=== PATIENT | female | born 1945 | race Caucasian/White ===

== ENCOUNTER 2020-12-04 14:40 | Outpatient (CLI) | payer MEDICARE, OTHER, SELFPAY ==
--- NOTE | 2020-12-04 14:53 | XR_ITS ---
WS: [id number] Bone mineral density performed on a [employer] IDXA, 12/04/2020 Clinical data: POST MENOPAUSAL Comparison study: DEXA scan, 12/01/2017. Findings: The first 4 lumbar vertebral bodies demonstrated the bone mineral density of 1.176 g/cm2 for a young adult T score of 0.0. Measurement of the left hip reveals a bone mineral density of 0.741 g/cm2 with a young adult T score of -2.1. Measurement of the right hip reveals the bone mineral density of 0.772 g/cm2 for young adult T score of -1.9. XR/XR DEXA axial skeleton* [id number] Impression: 1. The bone mineral density of the lumbar spine is normal and has improved comp ared to the prior study. 2. The bone mineral density left hip shows osteopenia and has decreased compare d to the prior study. 3. The bone mineral density of the right hip shows osteopenia and has diminishe d compared to the prior study.
== END 2020-12-04 14:41 | disposition home or self-care (01) ==
PROVIDERS: PCP Internal Medicine; Visit Provider Internal Medicine
DX: Z78.0 Asymptomatic menopausal state (principal); M85.88 Other specified disorders of bone density and structure, other site
CPT/HCPCS: 77080

== ENCOUNTER 2021-12-24 10:45 | Emergency (ER) | payer MEDICARE, OTHER, SELFPAY ==
[2021-12-24 10:57] VITALS: BP 158/90; PULSE 75; RESP 16; TEMP 36.8; O2SAT 97; BMI 29.0
--- NOTE | 2021-12-24 12:01 | ECG_ITS ---
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 Measurements Intervals [place] Rate: 72 P: 75 NC: 160 QRS: -24 QRSD: 129 T: 81 QT: 435 QTc: 478 Interpretive Statements SINUS RHYTHM WITH SINUS ARRHYTHMIA LEFT BUNDLE BRANCH BLOCK [120+ ms QRS DURATION, 80+ ms Q/S IN V1/V2, 85+ ms R IN I/aVL/V5/V6] No previous ECG available for comparison Electronically Signed On 12-24-2021 22:03:46 CDT by Elda Herrera M.D. [id number]
--- NOTE | 2021-12-24 12:01 | XR_ITS ---
WS: [id number] Exam: XR chest 1V portable [id number] Date/Time of Exam: 12/24/2021 12:03 PM Reason For Exam: dyspnea Comparison 07/06/2011. The lungs are clear and fully expanded. Normal cardiomediastinal silhouette. Atherosclerotic plaquing of the thoracic aorta. Mild bilateral apical pleural thickening. XR/XR chest 1V portable [id number] IMPRESSION: 1. No acute cardiopulmonary finding. No change.
--- NOTE | 2021-12-24 12:12 | ED_ITS ---
HPI - General Adult General: Chief complaint: Shortness of Breath/Dyspnea Stated complaint: SOB Time Seen by Provider: 12/24/21 12:01 History of Present Illness: Patient is a 76-year-old female with a history of macular degeneration, diabetes presenting to the emergency room for evaluation of generalized weakness, malaise, decreased p.o. intake cough and shortness of breath x1 week. Patient says that symptoms all started about a week ago and has been persistent. Patient denies any sick contact. Patient reports nausea without vomiting or diarrhea. Patient denies any generalized muscle ache or body weakness. Patient denies any chest pain, palpitation, abdominal complaints or complaints this time. No focal neurological complaints. Onset: 1 week ago Duration:1 week Location:home Severity:moderate Associated symptoms: Reports dyspnea, malaise and nausea; Deny chest pain, rash, palpitations or vomiting Review of Systems Const: Reports: fatigue and malaise; Denies: fever(s), chills or body aches Eyes: Denies: change in vision ENMT: Denies: mouth pain Card: Denies: chest pain or palpitations Resp: Reports: dyspnea and non-productive cough GI: Reports: nausea and other (+decreased po intake); Denies: abdominal pain, vomiting or diarrhea : Denies: dysuria Musc: Denies: extremity pain Skin/Breast: Denies: rash or new lesions Neuro: Denies: weakness in extremities Psych: Reports: other (Normal mood) Igor/Lymph: Denies: easy bruising PFSH ED PFSH: Medical History Hyperlipidemia Hypertension Surgical History History of bunionectomy of left great toe History of bunionectomy of right great toe History of hysterectomy History of tonsillectomy Family History Mother Cancer Father Cancer Brother Cancer Diabetes Denies family history of CAD (coronary artery disease) Clotting disorder Dementia Hyperlipidemia Psychiatric illness Chronic kidney disease (CKD) Suicide Anesthesia complication Bleeding disorder Family history of premature coronary artery disease Lung disease Hypertension Stroke Social History Smoking and tobacco status: never smoked Quit status (tobacco): has quit using tobacco Second hand smoke exposure: No Smoking risk assessment/counseling performed?: Yes Alcohol intake: never Desire information about alcohol rehabilitation?: No Counseling given: No Desire information about substance/drug rehabilitation?: No Counseling given: No Adopted: No Caregiver/support person: No Lives independently: Yes Marital status: Physical Exam Const: COMMON NORMALS: alert HENMT: COMMON NORMALS: atraumatic HEAD & SCALP: atraumatic MOUTH: moist mucous membranes not abnormal Eye: COMMON NORMALS: EOMs intact bilaterally and conjunctivae normal CON JUNCTIVA: Yes conjunctivae normal Neck/C-Spine: COMMON NORMALS: full ROM and supple Resp: COMMON NORMALS: normal respiratory effort and clear to auscultation bilaterally AUSCULTATION: clear to auscultation bilaterally OTHER: No coarse breath sounds or wheezing Cardio: COMMON NORMALS: regular rate RATE: regular rate GI: COMMON NORMALS: Soft to palpation and non-tender PALPATION: Yes Soft to palpation OTHER: No focal TTP. NO guarding rebound, guarding, rigidity. No CVA tenderness to percussion. Neg Beckford/Neg McBurney's point tenderness, no suprabupic tenderness to palpation. Extremity: COMMON NORMALS: full ROM Neuro: SENSORIUM/ORIENTATION: Yes alert MOTOR EXAM: No Abnormal motor strength present and Other motor observations present (no focal motor deficits) Psych: COMMON NORMALS: speech normal SPEECH: Yes normal speech MOOD & AFFECT: Yes euthymic mood Course Vital Signs: Vital signs: Vital Signs Temperature 98.2 F 12/24/21 10:57 Pulse Rate 85 12/24/21 15:29 Respiratory Rate 20 H 12/24/21 15:29 Blood Pressure 152/79 12/24/21 15:29 Pulse Oximetry 95 12/24/21 15:29 [facility] - General Adult Medical Decision Making 76-year-old who presented to the emergency with shortness of breath cough and generalized weakness x1 week. COVID flu negative. White count 7.6. X-ray chest negative for pneumonia. Patient continues to be hemodynamically stable, with normal O2 sats. Patient is noted have sodium 125 and potassium 3.3. Patient instructed to replete both. Troponin x2 with delta less than 5. EKG is nonischemic. Swabs negative for covid and influenza. In the setting of cough, likely viral. EKG showing LBBB at heart rate of 72. Left axis. No sgarbossa criteria for STEMI. DE and QT intervals wnl. Disposition: Discharge. Patient counseled regarding diagnostic impression, treatment plan. Patient given ED strict return precautions to return for continuation, worsening, or development of new symptoms. Instructed to f/u w/ PCP regarding symptoms today. Patient verbalized understanding. Lab Data : 12/24/21 12:18 12/24/21 12:18 Radiology Impressions Chest X-Ray 12/24/21 12:01 IMPRESSION: 1. No acute cardiopulmonary finding. No change. Laboratory Results WBC 7.6 10^3/uL (4.0-10.0) 12/24/21 12:18 RBC 4.69 10^6/uL (4.1-5.3) 12/24/21 12:18 Hgb 14.3 g/dL (11.5-15.3) 12/24/21 12:18 Hct 41.1 % (37.0-47.0) 12/24/21 12:18 MCV 87.6 fl (81-99) 12/24/21 12:18 MCH 30.5 pg (28.0-34.0) 12/24/21 12:18 MCHC 34.8 g/dL (30.0-36.0) 12/24/21 12:18 RDW 12.8 % (12.1-15.1) 12/24/21 12:18 Plt Count 230 10^3/cmm (130-400) 12/24/21 12:18 MPV 9.3 fL (7.4-10.4) 12/24/21 12:18 Neut % (Auto) 85.7 % 12/24/21 12:18 Lymph % (Auto) 7.1 % 12/24/21 12:18 [place] % (Auto) 6.6 % 12/24/21 12:18 Eos % (Auto) 0.0 % 12/24/21 12:18 Baso % (Auto) 0.3 % 12/24/21 12:18 Neut # (Auto) 6.48 10^3/uL (1.8-7.7) 12/24/21 12:18 Lymph # (Auto) 0.5 10^3/uL (0.8-4.8) L 12/24/21 12:18 [place] # (Auto) 0.5 10^3/uL (0.2-0.9) 12/24/21 12:18 Eos # (Auto) 0.0 10^3/uL (0.0-0.8) 12/24/21 12:18 Baso # (Auto) 0.0 10^3/uL (0.0-0.1) 12/24/21 12:18 Nucleated RBC % (auto) 0 % 12/24/21 12:18 Nucleated RBCs # 0.0 /100WBC 12/24/21 12:18 Sodium 125 mmol/L (136-145) L 12/24/21 12:18 Potassium 3.3 mmol/L (3.5-5.1) L 12/24/21 12:18 Chloride 84 mmol/L (98-107) L 12/24/21 12:18 Carbon Dioxide 29 mmol/L (22-29) 12/24/21 12:18 Anion Gap 15.3 (5-19) 12/24/21 12:18 BUN 14 mg/dL (8-23) 12/24/21 12:18 Creatinine 0.7 mg/dL (0.5-0.9) 12/24/21 12:18 GFR Calculation Not Reportable 12/24/21 12:18 Glucose 267 mg/dL (65-115) H 12/24/21 12:18 Calculated Osmolality 270 mOsm/kg (285-295) L 12/24/21 12:18 Calcium 9.1 mg/dL (8.5-10.5) 12/24/21 12:18 Troponin T Baseline 11 ng/L (0-10) H 12/24/21 12:18 Troponin T 120 Minute 10.45 ng/L (0-10) H 12/24/21 14:34 Delta Troponin T -0.55 ABS# (0-10) L 12/24/21 14:34 NT-Pro-B Natriuret Pep 958 pg/mL (0-450) H 12/24/21 12:18 Nasal Influ A H1 2008 PCR Not detected (NOT DETECT) 12/24/21 12:20 Coronavirus 229E (PCR) Not detected (NOT DETECT) 12/24/21 12:20 Influenza A (H1) PCR Not detected (NOT DETECT) 12/24/21 12:20 Influenza A (H3) PCR Not detected (NOT DETECT) 12/24/21 12:20 Influenza Type A Ag Cancelled 12/24/21 12:20 Influenza Type A (PCR) Not detected (NOT DETECT) 12/24/21 12:20 Influenza Type B Ag Cancelled 12/24/21 12:20 Influenza Type B (PCR) Not detected (NOT DETECT) 12/24/21 12:20 Parainfluenza 1 (PCR) Not detected (NOT DETECT) 12/24/21 14:14 Parainfluenza 2 (PCR) Not detected (NOT DETECT) 12/24/21 14:14 Parainfluenza 3 (PCR) Detected (NOT DETECT) A 12/24/21 14:14 Parainfluenza 4 (PCR) Not detected (NOT DETECT) 12/24/21 14:14 SARS-CoV-2 (PCR) Not detected (NOT DETECT) 12/24/21 12:20 Discharge Plan Discharge Patient Disposition: Home Clinical Impression: Cough, Generalized weakness, Hypokalemia, Hyponatremia Condition: Stable Prescriptions: New acetaminophen 500 mg tablet 500 mg PO Q6H PRN (Reason: pain) 5 Days Qty: 20 0RF ondansetron 4 mg tablet,disintegrating 4 mg PO TID PRN (Reason: nausea and vomiting) 4 Days Qty: 12 0RF potassium chloride 20 mEq tablet extended release 20 meq PO DAILY 7 Days Qty: 7 0RF No Action atorvastatin 20 mg tablet 20 mg PO ONCE 0RF metoprolol succinate 25 mg tablet extended release 24 hr 12.5 mg PO BID 0RF lisinopril 40 mg tablet 40 mg PO ONCE 0RF hydrochlorothiazide 25 mg tablet 25 mg PO QAM 0RF Humalog U-100 Insulin 100 unit/mL cartridge 5 unit SUBCUT TID 0RF (DME) Diabetic Shoes Qty: 1 0RF Rx Instructions: As directed Discharge Orders: Discharge ED (Routine); Ordered 12/24/21 Ordered By: Alirio Hart Referrals: Mohamud Butler DO [Primary Care Provider] - Discharge Diet: Advance as tolerated Discharge Activity: Increase activity as tolerated Patient Instructions: Acute Cough (ED) Activity Restrictions/Additional Instructions: Come back to the emergency room if your symptoms worsen, have any shortness of breath, fever/chills, dehydration, inability tolerate food or drinks, any difficulty breathing, or any new or concerning complaints. Please intake more salt and eat potassium filled food as you are low on both. Coding Level of Care Code ED Oyster Planter for Vickyg Fwd Exam Comprehensive
[2021-12-24 12:21] LABS: Basophils % 0.3 %; Hematocrit 41.1 % (37.0-47.0); Hemoglobin 14.3 g/dL (11.5-15.3); Lymphocytes # 0.5 10^3/uL (0.8-4.8); Lymphocytes % 7.1 %; Mean Corpuscular HGB Conc 34.8 g/dL (30.0-36.0); Mean Corpuscular Hemoglobin 30.5 pg (28.0-34.0); Mean Corpuscular Volume 87.6 fl (81-99); Mean Platelet Volume 9.3 fL (7.4-10.4); Monocytes # 0.5 10^3/uL (0.2-0.9); Monocytes % 6.6 %; Neutrophils # 6.48 10^3/uL (1.8-7.7); Neutrophils % 85.7 %; Nucleated Red Blood Cells % 0 %; Platelet Count 230 10^3/cmm (130-400); Red Blood Count 4.69 10^6/uL (4.1-5.3); Red Cell Distribution Width 12.8 % (12.1-15.1); White Blood Count 7.6 10^3/uL (4.0-10.0)
[2021-12-24 12:41] LABS: Troponin(5th) Baseline 11 ng/L (0-10)
[2021-12-24 12:49] LABS: Anion Gap 15.3 (5-19); Blood Urea Nitrogen 14 mg/dL (8-23); Calcium 9.1 mg/dL (8.5-10.5); Carbon Dioxide 29 mmol/L (22-29); Chloride 84 mmol/L (98-107); Creatinine Clr Calc Pharmacy 60.8928; Glucose 267 mg/dL (65-115); NT Pro B Type Natriuretic Pept 958 pg/mL (0-450); Osmolality Calculated 270 mOsm/kg (285-295); Potassium 3.3 mmol/L (3.5-5.1); Sodium 125 mmol/L (136-145)
[2021-12-24] MEDS: potassium chloride oral liq 20 mEq/15 mL UDC 40 MEQ PO (13:09)
[2021-12-24] MEDS: sodium chloride 1 gm Tablet PO (13:10)
--- NOTE | 2021-12-24 14:01 | ECG_ITS ---
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 Measurements Intervals [place] Rate: 79 P: 73 [place]: 161 QRS: -30 QRSD: 128 T: 89 QT: 423 QTc: 487 Interpretive Statements SINUS RHYTHM LEFT BUNDLE BRANCH BLOCK [120+ ms QRS DURATION, 80+ ms Q/S IN V1/V2, 85+ ms R IN I/aVL/V5/V6] Compared to ECG 12/24/2021 12:19:32 Sinus arrhythmia no longer present Electronically Signed On 12-24-2021 22:25:26 CDT by Elda Herrera M.D. [email or web address]/[id number]
[2021-12-24 14:14] LABS: Adenovirus Not Detected (NOT DETECT); Chlamydia Pneumoniae Not Detected (NOT DETECT); Coronavirus 229E,HKU1,NL63,OC4 Not Detected (NOT DETECT); Human Metapneumovirus Not Detected (NOT DETECT); Human Rhinovirus/Enterovirus Not Detected (NOT DETECT); Influenza A Not Detected (NOT DETECT); Influenza A H1 Not Detected (NOT DETECT); Influenza A H1-2009 Not Detected (NOT DETECT); Influenza A H3 Not Detected (NOT DETECT); Influenza B Not Detected (NOT DETECT); Mycoplasma Pneumoniae Not Detected (NOT DETECT); Parainfluenza Virus Type 1 Not Detected (NOT DETECT); Parainfluenza Virus Type 2 Not Detected (NOT DETECT); Parainfluenza Virus Type 3 Detected (NOT DETECT); Parainfluenza Virus Type 4 Not Detected (NOT DETECT); Respiratory Syncytial Virus A Not Detected (NOT DETECT); Respiratory Syncytial Virus B Not Detected (NOT DETECT); SARS-COV-2 Not Detected (NOT DETECT)
[2021-12-24 14:15] LABS: Parainfluenza Virus Type 1 Not Detected (NOT DETECT); Parainfluenza Virus Type 2 Not Detected (NOT DETECT); Parainfluenza Virus Type 3 Detected (NOT DETECT); Parainfluenza Virus Type 4 Not Detected (NOT DETECT); Results from Genmark
[2021-12-24 14:15] LABS: Influenza A Not Detected (NOT DETECT); Influenza A H1 Not Detected (NOT DETECT); Influenza A H1-2009 Not Detected (NOT DETECT); Influenza A H3 Not Detected (NOT DETECT); Influenza B Not Detected (NOT DETECT); Results from Genmark
[2021-12-24 15:08] LABS: Troponin 5 2HR 10.45 ng/L (0-10)
[2021-12-24 15:09] LABS: Troponin 5 2HR Delta -0.55 ABS# (0-10)
[2021-12-24 15:29] VITALS: BP 152/79; PULSE 85; RESP 20; O2SAT 95
== END 2021-12-24 15:31 | disposition home or self-care (01) ==
PROVIDERS: Emergency Provider Emergency Medicine; PCP Internal Medicine
DX: E87.1 Hypo-osmolality and hyponatremia (principal); E11.9 Type 2 diabetes mellitus without complications; H35.30 Unspecified macular degeneration; E87.6 Hypokalemia; Z79.4 Long term (current) use of insulin
CPT/HCPCS: 71045; 80048; 83880; 84484; 85025; 87631; 87635; 93005; 99284

== ENCOUNTER 2022-03-17 12:47 | Outpatient (CLI) | payer MEDICARE, OTHER, SELFPAY ==
--- NOTE | 2022-03-17 12:52 | XR_ITS ---
WS: [id number] SCREENING DEXA SCAN [employer] CLINICAL INFORMATION: POSTMENOPAUSEL COMPARISON: December 04, 2020 FINDINGS: The L1-L4 bone mineral density measures . This corresponds to a T score score of and Z score of . Left femoral neck bone mineral density measures 0.563 g/cm2. This corresponds to a T score of -3.5 an d Z score of -2.0. Right femoral neck bone mineral density measures 0.635 g/cm2. This corresponds to a T score -3.0of an d Z score of -1.4. Mean femoral neck bone mineral density measures 0.599 g/cm2. This corresponds to a T score of -3.2 an d Z score of -1.7. XR/XR DEXA axial skeleton* [id number] IMPRESSION: Normal bone mineralization lumbar spine although likely spuriously elevated due to endplate sclerosis. Osteoporosis in the femoral necks. Patient's FRAX calculated 10 year probability for major osteoporotic fracture i s 30.8 % and osteoporotic hip fracture is 15.6%. Bone mineral density lumbar spine has increased +16.3% since 2020 although like ly spuriously elevated due to endplate sclerosis. Bone mineral density in the femoral necks has decreased -20.8% since 2020
== END 2022-03-17 12:48 | disposition home or self-care (01) ==
PROVIDERS: PCP Internal Medicine; Visit Provider Internal Medicine
DX: Z78.0 Asymptomatic menopausal state (principal)
CPT/HCPCS: 77080

== ENCOUNTER → 2022-06-02 14:06 | Outpatient (BNVA) | payer MEDICARE, OTHER, SELFPAY | PROVIDERS: PCP Internal Medicine; Visit Provider Podiatrist Foot & Ankle Surgery | DX: E11.8 Type 2 diabetes mellitus with unspecified complications (principal); E11.43 Type 2 diabetes mellitus with diabetic autonomic (poly)neuropathy; L60.3 Nail dystrophy; L84 Corns and callosities; M21.621 Bunionette of right foot; M21.622 Bunionette of left foot; Z79.4 Long term (current) use of insulin | CPT/HCPCS: 11056; 11721 ==

== ENCOUNTER → 2022-10-13 08:31 | Outpatient (BNVA) | payer MEDICARE, OTHER, SELFPAY | PROVIDERS: PCP Internal Medicine; Visit Provider Podiatrist Foot & Ankle Surgery | DX: E11.8 Type 2 diabetes mellitus with unspecified complications (principal); E11.43 Type 2 diabetes mellitus with diabetic autonomic (poly)neuropathy; L60.3 Nail dystrophy; L84 Corns and callosities; M21.621 Bunionette of right foot; M21.622 Bunionette of left foot; Z79.4 Long term (current) use of insulin | CPT/HCPCS: 11056; 11721 ==

== ENCOUNTER → 2023-01-17 08:28 | Outpatient (BNVA) | payer MEDICARE, OTHER, SELFPAY | PROVIDERS: PCP Internal Medicine; Visit Provider Podiatrist Foot & Ankle Surgery | DX: E11.8 Type 2 diabetes mellitus with unspecified complications (principal); E11.43 Type 2 diabetes mellitus with diabetic autonomic (poly)neuropathy; L60.3 Nail dystrophy; L84 Corns and callosities; M21.621 Bunionette of right foot; M21.622 Bunionette of left foot; Z79.4 Long term (current) use of insulin | CPT/HCPCS: 11055; 11721 ==

== ENCOUNTER → 2023-04-10 10:05 | Outpatient (BNVA) | payer MEDICARE, OTHER, SELFPAY | PROVIDERS: PCP Internal Medicine; Visit Provider Podiatrist Foot & Ankle Surgery | DX: E11.43 Type 2 diabetes mellitus with diabetic autonomic (poly)neuropathy (principal); Z79.4 Long term (current) use of insulin; L60.3 Nail dystrophy; L84 Corns and callosities; M21.621 Bunionette of right foot; M21.622 Bunionette of left foot | CPT/HCPCS: 11056; 11721 ==

== ENCOUNTER → 2023-06-12 10:18 | Outpatient (BNVA) | payer MEDICARE, OTHER, SELFPAY | PROVIDERS: PCP Internal Medicine; Visit Provider Podiatrist Foot & Ankle Surgery | DX: E11.43 Type 2 diabetes mellitus with diabetic autonomic (poly)neuropathy (principal); L60.3 Nail dystrophy; L84 Corns and callosities; M21.621 Bunionette of right foot; M21.622 Bunionette of left foot; Z79.4 Long term (current) use of insulin | CPT/HCPCS: 11056; 11721 ==

== ENCOUNTER → 2023-08-23 10:46 | Outpatient (BNVA) | payer MEDICARE, OTHER, SELFPAY | PROVIDERS: PCP Internal Medicine; Visit Provider Specialist | DX: M16.12 Unilateral primary osteoarthritis, left hip; M25.552 Pain in left hip | CPT/HCPCS: 73502; 99204 ==

== ENCOUNTER → 2023-09-07 14:11 | Outpatient (BNVA) | payer MEDICARE, OTHER, SELFPAY | PROVIDERS: PCP Internal Medicine; Visit Provider Dermatology | DX: L82.1 Other seborrheic keratosis (principal); D22.4 Melanocytic nevi of scalp and neck; L81.4 Other melanin hyperpigmentation; L82.0 Inflamed seborrheic keratosis; L72.0 Epidermal cyst | CPT/HCPCS: 17110; 99203 ==

== ENCOUNTER → 2023-10-03 08:56 | Outpatient (BNVA) | payer MEDICARE, OTHER, SELFPAY | PROVIDERS: PCP Internal Medicine; Visit Provider Podiatrist Foot & Ankle Surgery | DX: E11.43 Type 2 diabetes mellitus with diabetic autonomic (poly)neuropathy (principal); L60.3 Nail dystrophy; L84 Corns and callosities; M21.621 Bunionette of right foot; M21.622 Bunionette of left foot | CPT/HCPCS: 11721 ==

== ENCOUNTER → 2024-01-02 09:14 | Outpatient (BNVA) | payer MEDICARE, OTHER, SELFPAY | PROVIDERS: PCP Internal Medicine; Visit Provider Podiatrist Foot & Ankle Surgery | DX: E11.43 Type 2 diabetes mellitus with diabetic autonomic (poly)neuropathy (principal); L60.3 Nail dystrophy; L84 Corns and callosities; M21.621 Bunionette of right foot; M21.622 Bunionette of left foot; Z79.4 Long term (current) use of insulin | CPT/HCPCS: 11056; 11721; 99215 ==

== ENCOUNTER → 2024-04-02 09:21 | Outpatient (BNVA) | payer MEDICARE, OTHER, SELFPAY | PROVIDERS: PCP Internal Medicine; Visit Provider Podiatrist Foot & Ankle Surgery | DX: E11.43 Type 2 diabetes mellitus with diabetic autonomic (poly)neuropathy (principal); L60.3 Nail dystrophy; L84 Corns and callosities; M21.621 Bunionette of right foot; M21.622 Bunionette of left foot; Z79.4 Long term (current) use of insulin | CPT/HCPCS: 11056; 11721 ==

== ENCOUNTER 2024-05-27 10:38 | Outpatient (CLI) | payer MEDICARE, OTHER, SELFPAY ==
--- NOTE | 2024-05-27 10:41 | MR_ITS ---
WS: [id number] MRI LUMBAR SPINE NONCONTRAST TECHNIQUE: Sagittal T1, T2 and STIR imaging. Axial T1 and T2 imaging. CLINICAL INFORMATION: SPINAL STENOSIS LUMBAR REGION COMPARISON: None. FINDINGS: Mild lumbar curve. Multilevel degenerative disc disease. Slight anterolisthesis L3 on L4 and L4 on L5 . Mild chronic appearing compression of the superior endplate L4. Tiny amount of subacute compressio n involving the superior endplate L2 with tiny fracture cleft and trace edema. Mild disc bulging in the cervical spine on the administrative program specialist imaging at C4-C5 and C5-C6 with mild central can al stenosis. Possible syrinx in the upper cervical cord. This could be further evaluated with cervica l spine MRI. L1-L2: Mild disc bulging with slight effacement of the ventral thecal sac. Mild LEFT foraminal narrow ing. Mild facet arthropathy. Mild central canal stenosis. L2-L3: Mild disc bulging with mild central canal stenosis. Moderate facet arthropathy and ligamentum flavum hypertrophy. Mild bilateral foraminal narrowing. L3-L4: Mild disc bulging with moderate central canal stenosis. Impingement on the RIGHT subarticular recess. Moderate facet arthropathy with ligamentum flavum hypertrophy. Mild to moderate RIGHT foramin al narrowing. L4-L5: Mild disc bulging with moderate central canal stenosis. Narrowing of the subarticular recess. Moderate facet arthropathy with ligamentum flavum hypertrophy. Mild bilateral foraminal narrowing. L5-S1: Disc osteophyte complex with endplate ridging. Impingement on the LEFT S1 nerve root in the noonan barticular recess. Severe LEFT foraminal narrowing. Moderate facet arthropathy. Visualized pelvic bony structures: Normal. Paravertebral soft tissues: Normal. MR/MR lumbar spine wo con* [id number] IMPRESSION: 1. Compression superior endplate L2 with visualized fracture cleft and a tiny amount of edema compatible with subacute to early chronic compression. Loss of approximately 35% vertebral body height. Minimal chronic appearing retropulsion at L2. 2. Chronic compression superior endplate L4. No edema. 3. Moderate central canal stenosis L3-L4 and L4-L5. 4. Severe LEFT L5-S1 foraminal narrowing with impingement on the exiting LEFT L5 nerve root. 5. Mild central canal stenosis in the cervical cord with possible syrinx. This can be further evaluated with cervical spine MRI.
== END 2024-05-27 10:39 | disposition home or self-care (01) ==
LOC: RAD 10:39
PROVIDERS: PCP Internal Medicine; Visit Provider Internal Medicine
DX: M48.062 Spinal stenosis, lumbar region with neurogenic claudication (principal); M47.896 Other spondylosis, lumbar region; M99.63 Osseous and subluxation stenosis of intervertebral foramina of lumbar region; M54.16 Radiculopathy, lumbar region; M51.360 Other intervertebral disc degeneration, lumbar region with discogenic back pain only; M25.78 Osteophyte, vertebrae; M47.898 Other spondylosis, sacral and sacrococcygeal region
CPT/HCPCS: 72148

== ENCOUNTER → 2024-06-20 13:35 | Outpatient (BNVA) | payer MEDICARE, OTHER, SELFPAY | PROVIDERS: PCP Internal Medicine; Visit Provider Orthopaedic Surgery | DX: Z09 Encounter for follow-up examination after completed treatment for conditions other than malignant neoplasm (principal) | CPT/HCPCS: 99214 ==

== ENCOUNTER → 2024-07-02 11:18 | Outpatient (BNVA) | payer MEDICARE, OTHER, SELFPAY | PROVIDERS: PCP Internal Medicine; Visit Provider Podiatrist Foot & Ankle Surgery | DX: L84 Corns and callosities (principal); E11.43 Type 2 diabetes mellitus with diabetic autonomic (poly)neuropathy; L60.3 Nail dystrophy; M21.621 Bunionette of right foot; M21.622 Bunionette of left foot; Z79.4 Long term (current) use of insulin | CPT/HCPCS: 11056; 11721 ==

== ENCOUNTER 2024-07-19 12:01 | Outpatient (RCR) | payer MEDICARE, OTHER, SELFPAY | END 2024-07-30 23:59 | disposition home or self-care (01) | LOC: SPT 12:01 | PROVIDERS: Visit Provider Orthopaedic Surgery | DX: M54.9 Dorsalgia, unspecified (principal); G89.29 Other chronic pain | CPT/HCPCS: 97110; 97161 ==

== ENCOUNTER 2024-07-31 06:00 | Outpatient (RCR) | payer MEDICARE, OTHER, SELFPAY | END 2024-08-30 23:59 | disposition home or self-care (01) | LOC: SPT 06:00 | PROVIDERS: Visit Provider Orthopaedic Surgery | DX: M54.9 Dorsalgia, unspecified (principal); G89.29 Other chronic pain | CPT/HCPCS: 97110; 97530 ==

== ENCOUNTER → 2024-09-24 13:10 | Outpatient (BNVA) | payer MEDICARE, OTHER, SELFPAY | PROVIDERS: PCP Family Medicine; Visit Provider Orthopaedic Surgery | DX: M54.9 Dorsalgia, unspecified (principal); M47.816 Spondylosis without myelopathy or radiculopathy, lumbar region | CPT/HCPCS: 72110; 99213 ==

== ENCOUNTER → 2024-10-01 11:06 | Outpatient (BNVA) | payer MEDICARE, OTHER, SELFPAY | PROVIDERS: PCP Family Medicine; Visit Provider Podiatrist Foot & Ankle Surgery | DX: E11.43 Type 2 diabetes mellitus with diabetic autonomic (poly)neuropathy (principal); L84 Corns and callosities; L60.3 Nail dystrophy; M21.621 Bunionette of right foot; M21.622 Bunionette of left foot; Z79.4 Long term (current) use of insulin | CPT/HCPCS: 11721 ==

== ENCOUNTER → 2024-10-08 08:58 | Outpatient (BNVA) | payer MEDICARE, OTHER, SELFPAY | PROVIDERS: PCP Family Medicine; Referring Provider Orthopaedic Surgery; Visit Provider Anesthesiology Pain Medicine | DX: M54.9 Dorsalgia, unspecified (principal); M51.16 Intervertebral disc disorders with radiculopathy, lumbar region; Z87.891 Personal history of nicotine dependence | CPT/HCPCS: 99204 ==

== ENCOUNTER → 2024-10-23 09:51 | Outpatient (BNVA) | payer MEDICARE, OTHER, SELFPAY | PROVIDERS: PCP Family Medicine; Visit Provider Anesthesiology Pain Medicine | DX: M54.16 Radiculopathy, lumbar region (principal); M54.9 Dorsalgia, unspecified; Z87.891 Personal history of nicotine dependence | CPT/HCPCS: 64483; 64484; J1100; J3490; J9999 ==

== ENCOUNTER → 2024-11-11 09:23 | Outpatient (BNVA) | payer MEDICARE, OTHER, SELFPAY | PROVIDERS: PCP Family Medicine; Visit Provider Anesthesiology Pain Medicine | DX: M54.9 Dorsalgia, unspecified (principal); M51.16 Intervertebral disc disorders with radiculopathy, lumbar region; M47.816 Spondylosis without myelopathy or radiculopathy, lumbar region | CPT/HCPCS: 99214 ==

== ENCOUNTER → 2024-11-19 14:48 | Outpatient (BNVA) | payer MEDICARE, OTHER, SELFPAY | PROVIDERS: PCP Family Medicine; Visit Provider Anesthesiology Pain Medicine | DX: M47.816 Spondylosis without myelopathy or radiculopathy, lumbar region (principal); M54.9 Dorsalgia, unspecified | CPT/HCPCS: 64493; 64494; 64495; J3490; J9999 ==

== ENCOUNTER → 2024-12-02 09:20 | Outpatient (BNVA) | payer MEDICARE, OTHER, SELFPAY | PROVIDERS: PCP Family Medicine; Visit Provider Anesthesiology Pain Medicine | DX: M54.9 Dorsalgia, unspecified (principal); M51.16 Intervertebral disc disorders with radiculopathy, lumbar region; M47.26 Other spondylosis with radiculopathy, lumbar region | CPT/HCPCS: 99214 ==

== ENCOUNTER → 2024-12-11 13:38 | Outpatient (BNVA) | payer MEDICARE, OTHER, SELFPAY | PROVIDERS: PCP Family Medicine; Visit Provider Anesthesiology Pain Medicine | DX: M16.12 Unilateral primary osteoarthritis, left hip (principal); M25.552 Pain in left hip | CPT/HCPCS: 20610; 77002; J1010; J3490 ==

== ENCOUNTER → 2024-12-30 08:17 | Outpatient (BNVA) | payer MEDICARE, OTHER, SELFPAY | PROVIDERS: PCP Family Medicine; Visit Provider Anesthesiology Pain Medicine | DX: M25.552 Pain in left hip (principal); M54.9 Dorsalgia, unspecified; M51.16 Intervertebral disc disorders with radiculopathy, lumbar region; M47.816 Spondylosis without myelopathy or radiculopathy, lumbar region | CPT/HCPCS: 99214 ==

== ENCOUNTER → 2024-12-31 10:43 | Outpatient (BNVA) | payer MEDICARE, OTHER, SELFPAY | PROVIDERS: PCP Family Medicine; Visit Provider Podiatrist Foot & Ankle Surgery | DX: E11.8 Type 2 diabetes mellitus with unspecified complications (principal); L60.3 Nail dystrophy; L84 Corns and callosities; E11.43 Type 2 diabetes mellitus with diabetic autonomic (poly)neuropathy; M21.621 Bunionette of right foot; M21.622 Bunionette of left foot; Z79.4 Long term (current) use of insulin | CPT/HCPCS: 11721 ==

== ENCOUNTER 2025-01-17 13:14 | Outpatient (CLI) | payer MEDICARE, OTHER, SELFPAY ==
--- NOTE | 2025-01-17 13:19 | XR_ITS ---
WS: [id number] SCREENING DEXA SCAN [employer] CLINICAL INFORMATION: POSTMENOPAUSAL COMPARISON: 2021 FINDINGS: The L1-L4 bone mineral density measures 1.369 g/cm2. This corresponds to a T score score of 1.6 and Z score of 3.0. Left femoral neck bone mineral density measures 0.752 g/cm2. This corresponds to a T score of -2.0 and Z score of -0.4. Right femoral neck bone mineral density measures 0.769 g/cm2. This corresponds to a T score -1.9of and Z score of -0.3. Mean femoral neck bone mineral density measures 0.760 g/cm2. This corresponds to a T score of -2.0 and Z score of -0.3. XR/XR DEXA axial skeleton* [id number] IMPRESSION: Normal bone mineralization lumbar spine. Osteopenia femoral necks. Patient's FRAX calculated 10 year probability for major osteoporotic fracture i s 18.5% and osteoporotic hip fracture is 6.3%. Bone density lumbar spine increased 16.4% Bone density femoral necks increased 26.9%
== END 2025-01-17 13:15 | disposition home or self-care (01) ==
PROVIDERS: PCP Family Medicine; Visit Provider Electrodiagnostic Medicine
DX: Z13.820 Encounter for screening for osteoporosis (principal); Z78.0 Asymptomatic menopausal state; M85.852 Other specified disorders of bone density and structure, left thigh; M85.851 Other specified disorders of bone density and structure, right thigh
CPT/HCPCS: 77080

== ENCOUNTER → 2025-01-29 08:55 | Outpatient (BNVA) | payer MEDICARE, OTHER, SELFPAY | PROVIDERS: PCP Family Medicine; Visit Provider Student in an Organized Health Care Education/Training Program | DX: M16.12 Unilateral primary osteoarthritis, left hip (principal); M51.16 Intervertebral disc disorders with radiculopathy, lumbar region | CPT/HCPCS: 73502; 99203 ==

== ENCOUNTER → 2025-04-01 10:17 | Outpatient (BNVA) | payer MEDICARE, OTHER, SELFPAY | PROVIDERS: PCP Family Medicine; Visit Provider Podiatrist Foot & Ankle Surgery | DX: E11.43 Type 2 diabetes mellitus with diabetic autonomic (poly)neuropathy (principal); L60.3 Nail dystrophy; L84 Corns and callosities; M21.621 Bunionette of right foot; M21.622 Bunionette of left foot; Z79.4 Long term (current) use of insulin | CPT/HCPCS: 11721 ==

== ENCOUNTER → 2025-05-06 10:29 | Outpatient (BNVA) | payer MEDICARE, OTHER, SELFPAY | PROVIDERS: PCP Family Medicine; Visit Provider Student in an Organized Health Care Education/Training Program | DX: M53.3 Sacrococcygeal disorders, not elsewhere classified (principal); M25.552 Pain in left hip | CPT/HCPCS: 99213 ==

== ENCOUNTER → 2025-05-26 08:40 | Outpatient (BNVA) | payer MEDICARE, OTHER, SELFPAY | PROVIDERS: PCP Family Medicine; Visit Provider Anesthesiology Pain Medicine | DX: M51.16 Intervertebral disc disorders with radiculopathy, lumbar region (principal); M47.816 Spondylosis without myelopathy or radiculopathy, lumbar region; M25.559 Pain in unspecified hip | CPT/HCPCS: 99214 ==

== ENCOUNTER → 2025-06-11 10:18 | Outpatient (BNVA) | payer MEDICARE, OTHER, SELFPAY | PROVIDERS: PCP Family Medicine; Visit Provider Anesthesiology Pain Medicine | DX: M53.3 Sacrococcygeal disorders, not elsewhere classified (principal) | CPT/HCPCS: 77002; J1010; J3490; J9999 ==

== ENCOUNTER → 2025-06-30 10:21 | Outpatient (BNVA) | payer MEDICARE, OTHER, SELFPAY | PROVIDERS: PCP Family Medicine; Visit Provider Podiatrist Foot & Ankle Surgery | DX: E11.8 Type 2 diabetes mellitus with unspecified complications (principal); L60.3 Nail dystrophy; L84 Corns and callosities; E11.43 Type 2 diabetes mellitus with diabetic autonomic (poly)neuropathy; M21.621 Bunionette of right foot; M21.622 Bunionette of left foot; Z79.4 Long term (current) use of insulin | CPT/HCPCS: 11055; 11721 ==

== ENCOUNTER → 2025-07-01 08:53 | Outpatient (BNVA) | payer MEDICARE, OTHER, SELFPAY | PROVIDERS: PCP Family Medicine; Visit Provider Anesthesiology Pain Medicine | DX: M51.16 Intervertebral disc disorders with radiculopathy, lumbar region (principal); M47.816 Spondylosis without myelopathy or radiculopathy, lumbar region; M25.559 Pain in unspecified hip; Z87.891 Personal history of nicotine dependence | CPT/HCPCS: 99214 ==